=== PATIENT | male | born 1975 | race Two or more races ===

== ENCOUNTER 2018-03-18 10:07 | Day surgery (SDC) | payer BC ==
[2018-03-17 15:57] LABS: Basophils # (auto) 0 uL; Basophils % (auto) 0.5 % (0.0-2.0); Eosinophils # (auto) 0.1 uL; Eosinophils % (auto) 1.4 % (0.0-7.0); Hematocrit 38.7 % (41.0-53.0); Hemoglobin 13.3 g/dL (13.5-17.5); Lymphocytes # (auto) 1.7 uL; Lymphocytes % (auto) 39.2 % (10.0-50.0); Mean Corpuscular Hemoglobin 29.4 pg (28.0-32.0); Mean Corpuscular Hgb Conc. 34.4 g/dL (32.0-36.0); Mean Corpuscular Volume 85.5 fL (80.0-100.0); Monocytes # (auto) 0.6 uL; Monocytes % (auto) 13.8 % (0.0-12.0); Neutrophils # (auto) 1.9 uL; Neutrophils % (auto) 45.1 % (37.0-80.0); Nucleated Red Blood Cells % 0.1 %; Platelet Count (auto) 225 10^3/uL (140-450); Red Blood Cells 4.53 10^6/uL (4.5-5.90); Red Cell Distribution Width 13.2 % (11.8-14.3); White Blood Cell 4.3 10^3/uL (4.4-10.8)
[2018-03-17 16:15] LABS: Albumin 3.7 g/dL (3.4-5.0); BUN/Creatinine Ratio 18.1; Bilirubin, Total 0.5 mg/dL (0.2-1.0); Potassium 4.5 mmol/L (3.5-5.1)
[2018-03-17 16:25] LABS: INR 0.93 (0.9-1.15); Partial Thromboplastin Time 42.3 sec (23.78-33.04)
[2018-03-17 16:26] LABS: Urine Bacteria NONE SEEN /hpf (None Seen); Urine Blood Negative /uL (Negative); Urine Mucus FEW (None Seen); Urine Specific Gravity 1.017 (1.001-1.035); Urine WBC 1 /hpf (0 - 3)
[~2018-03-18] VITALS: Ht 180.3 cm; Wt 83.9 kg
[2018-03-18] MEDS ORDERED: ceFAZolin 1GM/100ML 100 ML IV ONE (13:12)
[2018-03-18] MEDS ORDERED: fentaNYL CITRATE 100 MCG/2 ML VL ONE (14:43)
[2018-03-18] MEDS ORDERED: MIDAZOLAM HCL 1MG/1ML-2 ML VIAL ONE (14:43)
[2018-03-18] MEDS ORDERED: ONDANSETRON HCL 4 MG/2 ML VIAL ONE (14:45)
[2018-03-18] MEDS ORDERED: PROPOFOL 10 MG/ML 20 ML IV ONE (14:45)
[2018-03-18] MEDS ORDERED: BUPIVACAINE 0.75% INJ 10ML MPV SDV IJ ONE (15:31)
[2018-03-18] MEDS ORDERED: ceFAZolin 1GM VL ONE (15:41)
[2018-03-18] MEDS ORDERED: METOCLOPRAMIDE HCL 5MG/ml INJ 2ml VIAL IV ONE (15:45)
[2018-03-18] MEDS ORDERED: KETOROLAC TROMETH 30 MG/ML 1ML VIAL IV ONE (15:45)
[2018-03-18] MEDS ORDERED: HYDROmorphone HCL 2 MG/ML VL IV PRN (15:45)
[2018-03-18 16:39] VITALS: BP 121/82
== END 2018-03-18 16:45 | disposition home or self-care (01) ==
LOC: SUR 10:07
PROVIDERS: ATTEND Podiatrist Foot & Ankle Surgery
DX: L97.329 Non-pressure chronic ulcer of left ankle with unspecified severity (principal); E66.9 Obesity, unspecified
CPT/HCPCS: 15004; 15275; 36415; 80053; 81001; 85025; 85610; 85730; 87070; 87075; 87205; J0690; J2250; J2405; J2704; J3010; J3490